=== PATIENT | female | born 1980 | race Two or more races ===

== ENCOUNTER → 2019-01-30 | Emergency (ER) | payer OTHER ==
[~2019-01-30] VITALS: Ht 167.6 cm; Wt 95.7 kg
[~2019-01-30] MED LIST: SINGULAIR10 MG; VALACYCLOVIR1000 MG PO
== END | disposition home or self-care (01) ==
LOC: ER 17:37
DX: K62.6 Ulcer of anus and rectum (principal)

== ENCOUNTER 2020-09-05 08:58 | Inpatient (IN) | payer OTHER ==
[~2020-09-05] VITALS: Ht 167.6 cm; Wt 105.7 kg
[2020-09-05] MEDS ORDERED: PRENATA CHEWAB1 EACH (09:08)
[2020-09-05] MEDS ORDERED: ALDOMET PO (13:51)
== END 2020-09-06 11:24 | disposition home or self-care (01) | DRG 807 ==
LOC: ER 08:58 → SEC-K 11:11 → OB/GYN 11:11 → LDR 11:11 → OB/GYN 14:56
PROVIDERS: ADMIT Obstetrics & Gynecology; ATTEND Obstetrics & Gynecology
PROC: 10E0XZZ Delivery of Products of Conception, External Approach (ICD-10-PCS; principal; 2020-09-05)
PROC: BY4CZZZ Ultrasonography of Second Trimester, Single Fetus (ICD-10-PCS; 2020-09-05)
DX: O03.9 Complete or unspecified spontaneous abortion without complication (principal); Z37.1 Single stillbirth; O42.012 Preterm premature rupture of membranes, onset of labor within 24 hours of rupture, second trimester; Z3A.17 17 weeks gestation of pregnancy; Z20.822 Contact with and (suspected) exposure to COVID-19

== ENCOUNTER 2022-01-23 10:57 | Emergency (ER) | payer OTHER ==
[~2022-01-23] VITALS: Ht 167.6 cm; Wt 92.5 kg
[~2022-01-23 10:57] MED LIST changes: +ALDOMET PO; +PRENATA CHEWAB1 EACH
[2022-01-23] MEDS ORDERED: DICLOFENAC SODI50 MG PO (11:59)
[2022-01-23] MEDS ORDERED: DUI500 PO (11:59)
[2022-01-23] MEDS ORDERED: MUPIROCIN22 GM TOP (11:59)
[2022-01-23] MEDS ORDERED: VISTARIL25 MG PO (12:58)
== END 2022-01-23 13:27 | disposition home or self-care (01) ==
LOC: ER 10:57
DX: R07.89 Other chest pain (principal); F41.9 Anxiety disorder, unspecified; I10 Essential (primary) hypertension